=== PATIENT | female | born 1975 | race Caucasian/White ===

== ENCOUNTER → 2018-07-22 08:43 | Outpatient (CLI) | payer OTHER, SELFPAY ==
--- NOTE | 2018-07-22 08:51 | BI_ITS ---
MAMMOGRAPHY - BILATERAL SCREENING REASON FOR EXAM: Female, 43 years old. Routine annual screening examination. PERTINENT HISTORY: Grandmother with breast cancer. TECHNIQUE: Digital bilateral breast lennox (3D mammographic acquisition) in the CC and MLO projections. 2-D mediolateral oblique (MLO) and craniocaudad (CC) views of both breasts were obtained. CAD: Full Field Digital Mammography with Computer Added Detection was performed. COMPARISON: Comparison is made with prior study dated March 05, 2016. FINDINGS: Breast Composition: The breasts are heterogeneously dense, which may obscure small masses. There are no dominant masses or suspicious calcifications. No other significant abnormalities are identified. There has been no significant change since the prior study. BI/SCREENING MAMM (CAD), BILAT IMPRESSION: Stable bilateral screening mammogram. Yearly follow-up mammogram recommended. (A) ASSESSMENT CATEGORY: BIRADS Category 1: Negative. A letter regarding these results will be sent to the patient by the facility within 30 days. Approximately 10% of breast cancers are not detected by mammography. A normal mammogram should not delay biopsy of a clinically suspicious abnormality. [id number] Electronically Signed: Major Restrepo MD at 10:51 EST Tel [phone], Service support ,
== END ==
PROVIDERS: Family Provider Family Medicine; PCP Family Medicine; Referring Provider Obstetrics & Gynecology; Visit Provider Obstetrics & Gynecology
DX: Z12.31 Encounter for screening mammogram for malignant neoplasm of breast (principal)
CPT/HCPCS: 77063; 77067

== ENCOUNTER → 2018-09-09 09:34 | Outpatient (CLI) | payer OTHER, SELFPAY ==
[2018-09-05 08:55] VITALS: BMI 32.8
[2018-09-09 10:30] LABS: Cholesterol 191 mg/dL (200); Glucose 94 mg/dL (74-106); High Density Lipoprotein 81 mg/dL; Thyroid Stim Hormone (TSH) 2.38 uIU/mL (0.358-3.74); Triglycerides 52 mg/dL; Very Low Density Lipoprotein 10 mg/dL (5-40)
[2018-09-14 12:41] LABS: Vitamin D 1,25-Dihydroxy 53.3 pg/mL (19.9-79.3)
== END ==
PROVIDERS: Family Provider Family Medicine; PCP Family Medicine; Visit Provider Obstetrics & Gynecology
DX: Z13.1 Encounter for screening for diabetes mellitus (principal); Z13.21 Encounter for screening for nutritional disorder; Z13.220 Encounter for screening for lipoid disorders
CPT/HCPCS: 36415; 80061; 82652; 82947; 84443

== ENCOUNTER 2018-09-16 18:14 | Emergency (ER) | payer OTHER, SELFPAY ==
[2018-09-05 08:55] VITALS: BMI 32.8
[2018-09-16 18:15] VITALS: BP 151/83; PULSE 78; RESP 16; TEMP 35.9; O2SAT 98; BMI 31.4
--- NOTE | 2018-09-16 18:23 | RAD_ITS ---
STUDY: X-RAY - LEFT ANKLE REASON FOR EXAM: Female, 43 years old. Left ankle pain TECHNIQUE: 3 view(s) of the ankle. COMPARISON: None. FINDINGS: Normal visualized distal tibia and fibula. Normal medial and lateral malleoli. Normal tibiotalar articulation and ankle mortise. Normal visualized talus and calcaneus. The visualized subtalar, talonavicular, calcaneocuboid and tarsal articulations are normal. The soft tissue structures are unremarkable. RAD/Ankle min 3 Views IMPRESSION: Normal x-ray examination of the ankle. Electronically Signed: Jc Cronin DO at 19:03 EST Tel , Service support ,
--- NOTE | 2018-09-16 18:24 | ED.VISSUMM ---
- ER Visit Summary Date of Service: 09/16/18 Chief Complaint: Left ankle injury History of Present Illness: The patient is a 43 F who presents with an injury to the left ankle. She fell down steps about an hour ago. She has pain in the left ankle. It is worse with movement. She has been using crutches to help ambulate since then. She took no medications for this at home. She has a history of multiple fractures with a reconstruction of this left ankle many years ago Physical Examination: Vital signs reviewed. Left ankle exam reveals tenderness over the lateral malleolus. There is no swelling. She has decreased range of motion secondary to pain. She has 2+ DP pulses Test Results: Left ankle x-ray reveals no evidence of fracture Emergency Department Course and Treatment: Patient was treated with Ultram. X-rays revealed no fractures. Patient will ice, elevate and use crutches at home. She has a boot that she can use as well. She will call her orthopedist next week for follow-up appointment Treatment Plan: [] Disposition: Discharge Impression: Ankle sprain, L This note was generated with [employer] dictation software. It may contain incorrect words, spelling, and punctuation that were not noted in review of the chart prior to signing ED Disposition - Plan for ED Patient: Referrals: Bradly Burnett DO [Primary Care Provider] -
[2018-09-16] MEDS: traMADol 50 MG Tablet PO (18:48)
--- NOTE | 2018-09-16 19:16 | ED.DEP ---
ED Disposition - Plan for ED Patient: Disposition: Home or Assisted Living Instructions: ED Sprain Ankle W X Ray Referrals: Bradly Burnett DO [Primary Care Provider] -
[2018-09-16 19:36] VITALS: BP 117/67; PULSE 68; RESP 15; O2SAT 99
--- NOTE | 2018-09-16 19:36 | ED.RN ---
PT GIVEN WRITTEN AND VERBAL DISCHARGE INSTRUCTIONS. PT HAS BOOT AT HOME DR. SIMS INSTRUCTED HER TO WEAR. PT REPORTS UNDERSTANDING AND DENIES ANY FURTHER QUESTIONS. PT AMBULATES OUT OF DEPT WITH SPOUSE.
== END 2018-09-16 19:38 | disposition home or self-care (01) ==
PROVIDERS: Emergency Provider Emergency Medicine; Family Provider Family Medicine; PCP Family Medicine
DX: S93.402A Sprain of unspecified ligament of left ankle, initial encounter (principal); W10.9XXA Fall (on) (from) unspecified stairs and steps, initial encounter; Y93.9 Activity, unspecified; Y92.9 Unspecified place or not applicable; Y99.9 Unspecified external cause status; E03.9 Hypothyroidism, unspecified; Z79.899 Other long term (current) drug therapy
CPT/HCPCS: 73610; 99283

== ENCOUNTER 2019-01-26 08:30 | Outpatient (RCR) | payer OTHER, SELFPAY ==
[2018-12-19 08:01] VITALS: BMI 31.4
--- NOTE | 2018-12-19 17:41 | HP.PTEVAL_ITS ---
Patient's Visit Information RONY RIBEIRO is a 43 year old F referred to Physical Therapy by Pasquale Galarza DO with a diagnosis of INVERSION SPRAIN OF LEFT ANKLE - DOI 09-16-18. Date of Evaluation: 12/19/18 Physical Therapist: Brenda Mcadams PT, Cert MDT - Visit Plan Frequency: 2-3x /Week Duration: 4-6 Weeks Plan: LLE ROM, STRETCHING AND STRENGTHEING. MANUAL THERAPY AND MODALITIES NEEDED. 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 RIDES AND TAKES CARE OF HORSES. Disability: NO. Present symptoms: PAIN LEFT ANKLE. MAINLY IN THE BACK AND ON THE OUTSIDE. TOES GET NUMB OFF AND ON BUT THIS IS NOT NEW. Present since: SEP 2018. Pain Scale: WORST 2/10, LEAST 0/10. Currently: 08/11. Commenced as a result of: FELL DOWN THE STEPS AT HOME. Symptoms at onset: THE WHOLE ANKLE. Worse: PUSHING ON IT, DOING CERTAIN STRETCHES FOR BACK THAT PUT WEIGHT ON LEFT FOOT AND LEANING BACK. PLANTAR FLEXION WITH WEIGHT ON IT, INVERTING FOOT WITH WEIGHT ON IT. Better: ICE. SITTING. Disturbed sleep: NO. Previous history/Previous treatment: 2 LEFT ANKLE SURGERIES PRIOR TO THIS FALL. SHE DESCRIBES A RECONSTRUCTION SURGERY AND SURGERY FOR AN AVULSION FX. 1993 AND 1997. NO HARDWARE IN ANKLE. PATIENT DESCRIBES MULTIPLE BREAKS AND SPRAINS OF THIS ANKLE SINCE CHILDHOOD. PATIENT REPORTS TOE NUMBNESS, ANKLE TIGHTNESS AND ACHING OFF AND ON SINCE SURGER Y/SURGERIES. NO CORTISONE SHOTS. Gait: PAIN AND INSTABILITY WALKING ON UNEVEN GROUND. Accidents: MULTIPLE FALLS. Unexplained weight loss: NO. Imaging: LEFT ANKLE X-RAY - NORMAL. PMH: L4L5 HNP - DISECTOMY AND LAMINECTOMY ABOUT 3 YEARS AGO. RIGHT KNEE ARTHROSCOPIC SURGERY. PATIENT REPORTS SHE DOESN'T HAVE ANY PROPRIOCEPTION IN HER FEET OR LEGS AND IT HAS BEEN LIKE THIS SINCE CHILDHOOD FROM UNKNOWN CAUSE. HEART ABLASION SX ABOUT 3 YEARS AGO. H/O LEFT SHOULDER PAIN - BUT IT IS FINE NOW. PATIENT REPORTS CURRENTLY SHE HAS RIGHT UE TENDONITIS FOR NO APPARENT REASON. PLOF (Prior Level of Function): UNLIMITED - Objective THIS PATIENT AMBULATES INDEP'LY INTO PT WITHOUT ANY ASSISTIVE DEVICES OR GROSS DEVIATIONS NOTED. PATIENT HAS HYPERSENSATIVITY OF THE LEFT ANKLE AREA AND SHE RELATES THIS TO HER PAST ANKLE SURGERIES. HER ANKLE ISN'T BRUISED OR SWOLLEN. THERE IS NOT ACUTE TENDERNESS WITH LIGHT PALPATION HOWEVER SHE REPORTS DR. GALARZA PUSHED PRETTY HARD AND FOUND SOME TENDER AREAS IN FRONT OF AND BEHIND HER ANKLE BONE ON THE OUTSIDE. SHE HAS LEFT ANKLE DORSIFLEXION TO NEUTRAL, INVERSION IS ONLY 5 DEG AND EVERSION IS 28 DEG, PLANTARFLEX 55 DEG. LEFT ANKLE STRENGTH IS GROSSLY 4/5. TREATMENT: PATIENT WAS SEEN TODAY FOR LEFT ANKLE STM AND MANUAL STRETCHING. AND DESENSATIZATION FOLLOWED BY FRANK HINOJOSA 4 WAY ANKLE STRENGTHENING. HER LEFT ANKLE ROM IMPROVED POST TREATMENT ALL PLANES ESPECIALLY INVERSION. - Goals Goal 1:: DECREASE C/O LEFT ANKLE PAIN Goal Time Frame: 4-6 Weeks Goal 2:: IMPROVE LEFT ANKLE FUNCTIONAL ROM Goal Time Frame: 4-6 Weeks Goal 3:: IMRPOVE ANKLE FUNCTIONAL STRENGTH Goal Time Frame: 4-6 Weeks Goal 4:: INDEP HEP Goal Time Frame: 4-6 Weeks - Rehabilitation Potential Rehabilitation Potential: Good - Anticipated Interventions Patient/Client Instruction: Educate patient on: Condition, Plan of Care, Risk Factors, Benefits of Fitness Program For the Purpose of:: To improve self management Therapeutic Exercise to Include: Strength training, Balance training, Flexibilty training, Neuromotor development, Passive ROM, Active ROM For the Purpose of:: To decrease pain, To increase ROM, To improve muscle performance and motor function, To increase tolerance to activity/condition/position, To improve ability of physical actions for home/community/work/leisure Manual Therapy Techniques to Include: Passive ROM, Soft tissue mobilization For the Purpose of:: To decrease pain, To increase ROM, To improve nutrient delivery to tissue TENS: Yes Cryotherapy (ice pack, ice massage): Yes Thermo therapy (hot pack): Yes Ultrasound (thermal/non thermal): Yes For the Purpose of:: To decrease pain, To increase ROM, To improve nutrient delivery to tissue Thank you for the opportunity to evaluate your patient. For Medicare and Medicare HMO plans, please review the plan of care and approve it. It will need to be FAXED BACK to us at [phone] for Medicare purposes. For Medicare only, by signing this I certify the plan of care. Please let me know if there are questions or concerns regarding this plan of care. Physician Signature: Date:
--- NOTE | 2019-01-26 09:02 | HP.PTDCSUM ---
HP - PT D/C Summary It has been my pleasure to treat RONY RIBEIRO under orders from Pasquale Galarza DO, for the diagnosis of INVERSION SPRAIN OF LEFT ANKLE - DOI 09-16-18 for a total of 12 visit(s). Discharge Date: 01/26/19 Please see the following information for a summary of their discharge status. - Subjective Subjective: PATIENT REPORTS SHE HASN'T HAD ANY PAIN SINCE LAST WEDNESDAY WHEN SHE WAS STRETCHING IN THE GYM. SHE REPORTS IT DOESN'T HURT ON THE TOP ANYMORE JUST IN THE BACK. PATIENT REPORTS THE HIGHEST PAIN LEVEL SHE HAS HAD IN THE LAST WEEK WAS 2/10 - Pain LEFT ANKLE Pain Intensity (Out of 10): 0 - Overall Improvement % Improvement: 90 - Objective Objective/Function: ALL GOALS MET. PATIENT HAS GOOD LEFT ANKLE FUNCTIONAL ROM AND STRENGTH NOW WITH MILD INTERMITTENT PAIN. SHE IS INDEP WITH A HOME EX PROGRAM ALSO. THIS PATIENT AMBULATES INDEP'LY INTO PT WITHOUT ANY ASSISTIVE DEVICES OR GROSS DEVIATIONS NOTED. PATIENT STILL HAS HYPERSENSATIVITY OF THE LEFT ANKLE AREA AND SHE RELATES THIS TO HER PAST ANKLE SURGERIES. HER ANKLE ISN'T BRUISED OR SWOLLEN. SHE HAS LEFT ANKLE DORSIFLEXION TO +10 DEG, INVERSION 16 DEG AND EVERSION IS 43 DEG, PLANTARFLEX 60 DEG. LEFT ANKLE STRENGTH IS GROSSLY 5/5. - Goals Goal 1:: DECREASE C/O LEFT ANKLE PAIN Goal Progress: Goal Met Goal 2:: IMPROVE LEFT ANKLE FUNCTIONAL ROM Goal Progress: Goal Met Goal 3:: IMRPOVE ANKLE FUNCTIONAL STRENGTH Goal Progress: Goal Met Goal 4:: INDEP HEP Goal Progress: Goal Met - Plan Plan: D/C. PATIENT AGREEABLE. - D/C Information If there are questions or concerns regarding this patient's physical therapy, please feel free to call me at [phone]. Thank you for the referral of this patient. Sincerely, Brenda Mcadams, PT, Cert MDT
== END 2019-01-26 19:00 | disposition home or self-care (01) ==
LOC: PT 08:30
PROVIDERS: Family Provider Family Medicine; PCP Family Medicine; Referring Provider Orthopaedic Surgery; Visit Provider Orthopaedic Surgery
DX: S93.402D Sprain of unspecified ligament of left ankle, subsequent encounter (principal)
CPT/HCPCS: 97035; 97110; 97140; 97161; 97530

== ENCOUNTER → 2019-03-31 08:03 | Outpatient (CLI) | payer OTHER, SELFPAY ==
[2019-03-31 07:58] VITALS: BMI 31.4
--- NOTE | 2019-03-31 08:06 | RAD_ITS ---
STUDY: X-RAY - RIGHT ELBOW REASON FOR EXAM: Female, 43 years old. Atraumatic pain. TECHNIQUE: 3 view(s) of the elbow. COMPARISON: None. FINDINGS: Normal visualized humerus, radius and ulna. Normal radiocapitellar and ulnotrochlear articulations. The soft tissue structures are unremarkable. RAD/Elbow min 3 Views IMPRESSION: Normal x-ray examination of the elbow. Electronically Signed: Major Restrepo, at 10:09 EDT , Service support ,
== END ==
PROVIDERS: Family Provider Family Medicine; PCP Family Medicine; Referring Provider Orthopaedic Surgery; Visit Provider Orthopaedic Surgery
DX: M25.521 Pain in right elbow (principal)
CPT/HCPCS: 73080

== ENCOUNTER 2019-04-27 07:30 | Outpatient (RCR) | payer OTHER, SELFPAY ==
[2019-03-31 07:58] VITALS: BMI 31.4
--- NOTE | 2019-04-06 09:27 | HP.OTEVAL ---
Patient's Visit Information RONY RIBEIRO is a 43 year old F, referred to Occupational Therapy by Pasquale Galarza DO, with a diagnosis of Right lateral epi .. Date of Evaluation: 04/05/19 Occupational Therapist: MERA Parkinson/Curt, CHT - Subjective Subjective: This 43 year old female was seen for OT eval with dx of right elbow pain for about 4-5 month. pt states she does wear a counter force brace and wears it when she is doing physical labor. ices 1 x a day. celabrex daily. 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 keyboard. pt would like to decrease her pain level so she can return to her daily occupations. - ADLs Household: Vacuum, Sweep/mop Yard: Mow lawn Comments: push mow Comments: pt states she has pain with working with her horses-pts states she can not hold items to care for her horses. - Pain right elbow 1 Pain Intensity Range: 7 - ROM Elbow: right/left WNL Forearm: right/left WNL - Strength Investment Banking Analyst: Right elbow bent 40# straight 20#left bent 80#/stratight 100# Lateral Pinch: Right 14# left 20# Tripod Pinch: Right 20# left 20# - Special Tests Lat Epiconylitis - as named: positive - Quick DASH-Disab of Arm,Shoulder& Hand Quick DASH Score: 31.6650 - Tennis Elbow Tennis Elbow Score: 41 - Goals Goal:: PT will demo an increase in medical authorization specialist strength by 30# to increase independent with basic occupations of daily living to return pt to PLOF by D/C. Pt will demo an increase in lateral and tripod pinch by 4# to increase pts independent with opening baggies, containers at PLOF by D/C. Goal:: Pt will report pain no greater than 1/10 with use of affected hand with BADLs and IADLs by d/c. Goal:: Pt will demo understanding of work/lifting and carry ergonomics to decrease stress on tendons to increase pts independent with ADLs, IADLS and work tasks by d/c. Goal:: pt will demo ind. don/doff of counter fource lat. epi brace and demo understanding of using with all daily occupations. - Rehabilitation General Assessment: Pt demo with positive lat. epi symptoms as pain to right lat eip. with palpation along with a decrease in medical authorization specialist strength and pain with resisitve forearm pronation limiting ptss with BADLs and IADLS. Pt would benefit from skilled OT services 1-2x week for 4 weeks to decrease pts pain, increase pts functional strength to return pt to PLOF with ALDs and IADLs. Today pt was ed. and given handout on lat. ep ed./ extensor stretch along with use of counter force brace and ice 1-2 x day for 10 min. pt demo understanding and agree to POC. Rehabilitation Potential: Good - Anticipated Interventions Anticipated Interventions: Strengthening, Triggerpoint Release, Modalities, Orthoses, Joint Protection/Energy Conservation, Ergonomic Education - Visit Plan Frequency: 2x /Week Duration: 4 Weeks TEXT: Thank you for the opportunity to evaluate your patient. For Medicare and Medicare HMO plans, please review the plan of care and approve it. It will need to be FAXED BACK to us at [phone] for Medicare purposes. Please let me know if there are questions or concerns regarding this plan of care. Physician Signature: Date:
--- NOTE | 2019-06-21 18:50 | HP.OTDCSUM ---
HP - OT D/C Summary It has been my pleasure to treat RONY RIBEIRO under orders from Pasquale Galarza DO, for the diagnosis of Right lateral epi . for a total of 7 visit(s). Please see the following information for a summary of their discharge status. - Overall Improvement % Improvement: 30 - Objective Objective/Function: right elbow pain with right fruit shipper strength 45#. right elbow straight fruit shipper strength 20# pt has at 4/10. pt is performing eccentric ex, use of counter force brace, wrist brace. Pt also ed. and reports she has changed her ergonomics with daily tasks. Due to limited progress pt was asked to return to dr. - Goals Patient Goals: Regain Strength, Decrease Pain, Use Hand/Wrist/Arm Normally Again, Be More Independent in ADLS Goal:: PT will demo an increase in fruit shipper strength by 30# to increase independent with basic occupations of daily living to return pt to PLOF by D/C. Pt will demo an increase in lateral and tripod pinch by 4# to increase pts independent with opening baggies, containers at PLOF by D/C. Goal:: Pt will report pain no greater than 1/10 with use of affected hand with BADLs and IADLs by d/c. Goal:: Pt will demo understanding of work/lifting and carry ergonomics to decrease stress on tendons to increase pts independent with ADLs, IADLS and work tasks by d/c. Goal:: pt will demo ind. don/doff of counter fource lat. epi brace and demo understanding of using with all daily occupations. - Plan Plan: cont eccentric ex - D/C Information If there are questions or concerns regarding this patient's occupational therapy, please fell free to call me at [phone]. Thank you for the referral of this patient. Sincerely, Areli Valdez, OTR/L, CHT
== END 2019-04-27 19:00 | disposition home or self-care (01) ==
LOC: OT 07:30
PROVIDERS: Family Provider Family Medicine; PCP Family Medicine; Referring Provider Orthopaedic Surgery; Visit Provider Orthopaedic Surgery
DX: M77.11 Lateral epicondylitis, right elbow (principal)
CPT/HCPCS: 97035; 97110; 97140; 97166; 97168

== ENCOUNTER → 2019-12-13 07:51 | Outpatient (CLI) | payer OTHER, SELFPAY ==
[2019-12-06 09:45] VITALS: BMI 31.4
--- NOTE | 2019-12-13 07:54 | US_ITS ---
STUDY: ULTRASOUND OF THE FEMALE PELVIS - COMPLETE REASON FOR EXAM: Female, 44 years old. PELVIC PAIN , S/P HYSTERECTOMY LMP: The patient is post hysterectomy. TECHNIQUE: Transabdominal TECHNICAL QUALITY: Adequate. COMPARISON: None. FINDINGS: The patient is status post hysterectomy. The right ovary is visualized. The right ovary measures 2.7 cm x 2.5 cm x 0.9 cm. There is no right ovarian cyst or ovarian mass. There is no visualized right adnexal mass or complex lesion. There is normal arterial and normal venous vascularity. The left ovary is visualized. The left ovary measures 2.3 cm x 2 cm x 1.2 cm. There is no left ovarian cyst or ovarian mass. There is no visualized left adnexal mass or complex lesion. There is normal arterial and normal venous vascularity. There is no fluid in the cul-de-sac. The pre void volume of the bladder was 391 ml. Polycystic ovary disease: No. US/Pelvic (Non ) IMPRESSION: Status post hysterectomy. The ovaries are unremarkable. Electronically Signed: Major Restrepo, at 10:18 EDT , Service support ,
== END ==
PROVIDERS: PCP Preventive Medicine Occupational Medicine; Referring Provider Obstetrics & Gynecology; Visit Provider Obstetrics & Gynecology
DX: N80.9 Endometriosis, unspecified (principal); R10.2 Pelvic and perineal pain
CPT/HCPCS: 76856

== ENCOUNTER → 2020-08-14 09:48 | Outpatient (CLI) | payer OTHER, SELFPAY ==
[2020-08-14 12:27] LABS: Absolute Lymphocyte Count 1.85 X10^3/uL (0.83-4.51); Absolute Neutrophil Count 4.1 X10^3/uL (2.0-7.7); Basophil# 0.03 X10^3/uL; Basophil% 0.5 % (0-1); Eosinophil# 0.16 X10^3/uL; Eosinophils% 2.4 % (0-5); Hematocrit 40.4 % (37-47); Hemoglobin 13.1 g/dL (12.0-15.0); Lymphocyte # 1.85 X10^3/ul (4.0); Lymphocyte % 27.9 % (19-41); Mean Corp Hgb Conc 32.4 g/dL (32-36); Mean Corpuscular Hgb 30.7 pg (27.0-32.0); Mean Corpuscular Volume 94.6 fL (81-99); Mean Platelet Vol. 11.3 fl (6.2-12.0); Monocyte# 0.49 X10^3/uL; Monocyte% 7.4 % (0-10); NRBC Flagged by Analyzer 0 % (0-5); Neutrophil # 4.09 X10^3/uL (2.7-7.7); Neutrophil % 61.6 % (47-70); Platelet Count 258 K/mm3 (150-450); RBC Distribution Width CV 13.8 % (11.6-14.6); RBC Distribution Width SD 47.9 fl (35.1-43.9); Red Blood Count 4.27 M/mm3 (4.2-5.4); White Blood Count 6.6 K/mm3 (4.4-11.0)
[2020-08-14 12:41] LABS: Vitamin D,25 Hydroxy 19.5 ng/mL
[2020-08-14 12:52] LABS: ALB/GLOB Ratio 0.9 RATIO (0.9-2.4); AST(SGOT) 18 U/L (15-37); Alanine Aminotransfer ALT/SGPT 22 U/L (13-56); Albumin, Serum 3.7 g/dL (3.2-5.0); Alkaline Phosphatase 126 U/L (45-117); Anion Gap 7 (5-15); BUN 16 mg/dL (7-18); BUN/Creat Ratio 19.5 RATIO (10-20); Calcium,Total 9.1 mg/dL (8.5-10.1); Chloride 105 mmol/L (98-107); Creatinine, Serum 0.82 mg/dL (0.55-1.02); EST Glomerular Filtration Rate 80 mL/min (>60); Est Glom Filt Rate - Afr Amer 97 mL/min (>60); Glucose 96 mg/dL (74-106); Potassium 4.4 mmol/L (3.5-5.1); Protein, Total 7.7 g/dL (6.4-8.2); Sodium Level 139 mmol/L (136-145)
== END ==
PROVIDERS: PCP Preventive Medicine Occupational Medicine; Referring Provider Preventive Medicine Occupational Medicine; Visit Provider Family Medicine
DX: Z01.818 Encounter for other preprocedural examination (principal)
CPT/HCPCS: 36415; 80053; 82306; 85025

== ENCOUNTER 2020-08-26 09:37 | Day surgery (SDC) | payer OTHER, SELFPAY ==
[2019-12-06 09:45] VITALS: BMI 31.4
[2020-08-26 10:23] VITALS: BP 141/92; PULSE 63; RESP 16; TEMP 36.9; O2SAT 100; BMI 37.9
[2020-08-26] MEDS: Lactated Ringers 1,000 ML 100 ML IV (10:39)
--- NOTE | 2020-08-26 10:45 | RAD_ITS ---
STUDY: X-RAY - LEFT FOOT CLINICAL: ORIF left navicular fracture. TECHNIQUE: 4 intraoperative images of the foot. COMPARISON: Radiographs 09/16/2018. FINDINGS: There is an orthopedic screw in the navicular. 2 minutes and 21 seconds of fluoroscopy time was used. Electronically Signed: Ervin Gottlieb MD at 14:11 EST Tel , Service support , RAD/Foot min 3 Views
[2020-08-26] MEDS: Bupivacaine Mpf 0.5% 30 ML VIAL (11:02)
--- NOTE | 2020-08-26 11:11 | PCM.DC.POD ---
Discharge Diet: Light diet - advance as tolerated Discharge Activity: May not drive while taking narcotic pain medications., Use Walker, Use Crutches Weight Bearing Status: No weight bearing - Strict nonweightbearing left foot. Keep extremity elevated above heart level: Left Leg - Keep left foot elevated with pillows for at least 50 minutes of every hour. Call your doctor if your incision/area has: Continuous Slow Oozing, Sudden Increased Bleeding, Increased Redness, Foul Smelling Discharge Call your doctor if you observe: Fever of 101 or Higher, Shortness of breath, Chest pain, Increased palpitations (irregular heartbeat), Calf discomfort, Uncontrolled pain Cleanse incision/area with: Do not get Incision Wet, Keep Dressing Clean & Dry Additional Instructions: Take 160mg Aspirin by mouth once a day to help prevent a blood clot. Allergies/Adverse Reactions: Allergies adhesive tape Allergy (Verified 08/26/20 10:22) Hives amoxicillin trihydrate [From Augmentin] Allergy (Verified 08/26/20 10:22) Other diclofenac Allergy (Verified 08/26/20 10:22) Swelling hydrocodone Allergy (Verified 08/26/20 10:22) Shortness of breath HALLUCINATIONS/MENTAL STAUS CHANGES oxycodone Allergy (Verified 08/26/20 10:22) Shortness of breath HALLUCINATION/MENTAL STATUS CHANGE phenobarbital Allergy (Verified 08/26/20 10:22) Other potassium clavulanate [From Augmentin] Allergy (Verified 08/26/20 10:22) Other acetaminophen [From Vicodin] Adverse Reaction (Verified 08/26/20 10:22) Other hydrocodone bitartrate [From Vicodin] Adverse Reaction (Verified 08/26/20 10:22) Other oxycodone HCl [From Percocet] Adverse Reaction (Verified 08/26/20 10:22) Other Medications to take at Discharge oxybutynin chloride 5 mg tablet,extended release 24 hr 5 mg PO QDAY #90 tab 09/05/18 sertraline 100 mg tablet 100 mg PO DAILY 12/06/19 Levothyroxine [Synthroid] 50 mcg PO QODAY 08/19/20 Meclizine HCl [Antivert] 12.5 mg PO DAILY PRN PRN 08/19/20 Acetaminophen 500 mg PO Q4H PRN PRN #40 tab 08/26/20 Ergocalciferol [Vitamin D] 1 capsule PO QWEEK 08/26/20 Levothyroxine [Synthroid] 25 mcg PO QODAY 08/26/20 Tramadol HCl [Ultram] 50 mg PO Q6H PRN PRN 3 Days #20 tab 08/26/20 The following prescriptions were given: Acetaminophen 500 mg PO Q4H PRN PRN #40 tab PRN Reason: Pain Score 1-10 Transmission Status: Received by [facility] Tramadol HCl [Ultram] 50 mg PO Q6H PRN PRN 3 Days #20 tab PRN Reason: Pain Score 4-10 Transmission Status: Received by [facility] Primary Care Physician: Salvador Rosa DO [Primary Care Provider] - Test Results: Test results from this visit will be discussed in further detail at your follow-up appointment, if applicable. Please Follow Up With: Obey Henry DPM When: 1 week, sooner if needed
[2020-08-26] MEDS: Heparin Injection (Vial) 5,000 UNIT/ML VIAL 5000 UNIT (11:28)
[2020-08-26] MEDS: 0.9% Saline Lock 10 ML Syringe IV ×2 (11:42→11:57)
[2020-08-26 12:44] VITALS: BP 141/92; BP 174/82; PULSE 100; RESP 18; TEMP 36.5; O2SAT 100
--- NOTE | 2020-08-26 12:46 | PCM.OPRPT ---
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 Chelsi Bacon Type of Anesthesia:: General, Local Specimen's removed: None Estimated Blood Loss (mL): 5mL Description of Procedure: Indications: This is a 45 year old female who has chronic pain to the left foot, since March 2020. Her symptoms persisted and were not getting better despite resting and other conservative modalities. An MRI was ordered, which showed a navicular fracture along with bone marrow edema to the navicular. A CT scan also confirmed the navicular stress fracture to the navicular. She is active, especially with her horses. All of the options were discussed with her, and we reviewed the conservative versus surgical options given the nature of this injury as well as the chronicity and her activity level. She elected to proceed forward with open reduction and internal fixation of the navicular fracture, along with calcaneal bone marrow aspiration and application of concentrated bone marrow aspirate to the navicular fracture site. The procedure was reviewed with her in great detail as well as all possible benefits versus the risks and all alternative options. She expressed understanding and agreement and agreed forward to proceed forward with surgical intervention. Patient reviewed the consent forms and freely signed them. Operative Procedure: The patient was brought back into the operating room and was placed on the operating room table in the supine position. The patient did receive prophylactic antibiotics. She received 900 mg of Clindamycin for IV antibiotic prophylaxis. A well-padded pneumatic tourniquet was applied around her left ankle. A time-out was performed and the patient was properly identified and surgical plan was confirmed. She received general anesthesia per the anesthesiologist. A well padded pneumatic tourniquet was applied around the left ankle, however was not inflated. The left foot was scrubbed, prepped and draped in the usual aseptic fashion. Also of note the patient received a left ankle block in the pre operative holding area by the anesthesia team. A Jamshidi needle was carefully inserted into the lateral wall of the calcaneus at the safe zone. 40mL of bone marrow aspirate was obtained and it was spun down using the [employer] system to 1mL of concentrated bone marrow aspirate. A guide wire was placed from lateral to medial across the body of the navicular, across the fracture site. Proper placement was confirmed using intraoperative flouroscopy. A small ~0.5mm skin incision was made to the dorsal foot at level of the dorsal lateral navicular. Careful dissection was completed down to the navicular bone. The navicular was drilled over the guide wire, and using rigid open reduction and internal fixation technique one 3.5 mm Arthrex cannulated screw was placed across the fracture site until the screw was tightly placed down to the bone and there was good compression of the fracture site. This was done under intraoperative fluoroscopy for guidance. At this time, the fracture site was stable. The site was flushed out with copious amounts of normal saline solution. The concentrated bone marrow aspirate was injected to the navicular fracture site. The navicular bone was again checked under intraoperative fluoroscopy and it was noted alignment was anatomic, and screw was in good position. The skin was carefully reapproximated using 3-0 Nylon. A dressing was applied, which consisted of Betadine-soaked adaptic, 4 x 4 gauze, Kerlix, Milad bandages and a well-padded below the knee posterior splint. The pneumatic tourniquet was not needed, and thus was not inflated during this procedure. There was minimal blood loss, all bleeding was stopped proper to closure. There was noted to be normal warmth and perfusion to the left foot and to all 5 toes in left foot with normal temperature gradient present throughout and at the end of the procedure. Postoperative x-rays were ordered, which confirmed open reduction and internal fixation of the navicular with anatomical alignment with proper screw fixation across the fracture site. No complications were present. The patient tolerated the above procedure well and anesthesia well with no complications. She was transported from the operative room to recovery room with vital signs stable and in good condition. Postoperative orders were placed. Postoperative instructions were reviewed with her and her who was with her today, instructions were given to keep the left foot elevated for at least 50 minutes of every hour and to remain nonweightbearing to the left foot at all times. Also keep the dressing and splint clean, dry and intact. A prescription for Tramadol 50mg PO q 6 hours prn pain was provided, as well as Acetaminophen 500mg PO q 4 hours prn pain. She relates Tramadol and Acetaminophen are the only pain medications she can take due to her allergy history. Reviewed possible side effects and possible drug interactions with her other medications. Also Aspirin 160mg PO once daily was recommended to help prevent a blood clot due to immobilization, decreased activities and now post op surgery. She relates she has taken her current medications together with Tramadol and Acetaminophen in the past with no problems or adverse reactions. Advised patient to monitor for any adverse reactions, problems, questions or concerns and follow up immediately if present. Otherwise she is to follow up in office in 1 week or sooner if needed. Grafts/Implants Used: 1 x 3.5mm cannulated arthrex screw - Complications None
--- NOTE | 2020-08-26 12:55 | RAD_ITS ---
STUDY: X-RAY - LEFT FOOT CLINICAL: Postop left navicular fracture. TECHNIQUE: 3 view(s) of the foot. COMPARISON: Intraoperative images obtained the same day. FINDINGS: There is an orthopedic screw transfixing the navicular fracture in anatomical alignment and position. Normal visualized subtalar, talonavicular, calcaneocuboid, tarsal and tarsometatarsal articulations. Normal metatarsi. Normal metatarsophalangeal joint of the great toe. Normal tibial and fibular sesamoid bones. There is a bipartite tibial sesamoid. Normal interphalangeal joint of the great toe. Normal phalanges of the great toe. Normal second through fifth metatarsophalangeal joints. Normal interphalangeal joints and phalanges of the lesser toes. There is an overlying cast. RAD/Foot min 3 Views IMPRESSION: ORIF of navicular fracture. Electronically Signed: Ervin Gottlieb MD at 14:25 EST Tel , Service support ,
[2020-08-26 13:00] VITALS: BP 141/92; BP 157/95; PULSE 89; RESP 16; O2SAT 100
[2020-08-26 13:15] VITALS: BP 141/92; BP 160/88; PULSE 83; RESP 16; O2SAT 97
[2020-08-26 13:21] VITALS: BP 141/92; BP 167/87; PULSE 86; RESP 16; TEMP 36.2; O2SAT 96
[2020-08-26 14:50] VITALS: BP 140/80; BP 141/92; PULSE 65; RESP 12; TEMP 36.8; O2SAT 99
== END 2020-08-26 15:02 | disposition home or self-care (01) ==
LOC: SDC 09:37 → AC 09:38
PROVIDERS: Anesthesiology; PCP Preventive Medicine Occupational Medicine; Referring Provider Podiatrist; Visit Provider Podiatrist
PROC: (CPT 20999; principal; 2020-08-26 11:10)
DX: M84.375A Stress fracture, left foot, initial encounter for fracture (principal); X58.XXXA Exposure to other specified factors, initial encounter; Y93.9 Activity, unspecified; Y92.9 Unspecified place or not applicable; Y99.9 Unspecified external cause status; M79.672 Pain in left foot; G89.29 Other chronic pain; Z20.822 Contact with and (suspected) exposure to COVID-19; E07.9 Disorder of thyroid, unspecified; J45.909 Unspecified asthma, uncomplicated; K21.9 Gastro-esophageal reflux disease without esophagitis; Z78.0 Asymptomatic menopausal state; Z79.899 Other long term (current) drug therapy
CPT/HCPCS: 01480; 20999; 28465; 64450; 73630; 76000; 84443; 87426; C1713; C9803; J7120; A4216; J2405

== ENCOUNTER 2021-08-07 08:17 | Outpatient (CLI) | payer OTHER, SELFPAY ==
--- NOTE | 2021-08-07 08:15 | BI_ITS ---
MAMMOGRAPHY - BILATERAL SCREENING REASON FOR EXAM: Female, 46 years old. Routine annual screening examination. PERTINENT HISTORY: Mother with breast cancer. Grandmother with breast cancer. TECHNIQUE: Digital bilateral breast roberto (3D mammographic acquisition) in the CC and MLO projections. 2-D mediolateral oblique (MLO) and craniocaudad (CC) views of both breasts were obtained. CAD: Full Field Digital Mammography with Computer Added Detection was performed. COMPARISON: Comparison is made with prior study dated 07/22/2018 and 03/05/2016. FINDINGS: Breast Composition: The breasts are heterogeneously dense, which may obscure small masses. 7.4 mm x 7 mm well-defined nodule in the deep slightly upper lateral portion of the left breast. Correlation with ultrasound is recommended. No other significant abnormalities are identified. BI/SCRN MAMM (CAD)W/ROBERTO BILAT IMPRESSION: 7.4 mm x 7 mm well-defined nodule in the deep slightly upper lateral portion of the left breast. Correlation with ultrasound is recommended. ASSESSMENT CATEGORY: BIRADS Category 0: Incomplete. Need additional imaging evaluation. A letter regarding these results will be sent to the patient by the facility within 30 days. Approximately 10% of breast cancers are not detected by mammography. A normal mammogram should not delay biopsy of a clinically suspicious abnormality. [id number] Electronically Signed: Major Restrepo MD at 9:18 EST , Service support ,
== END 2021-08-07 23:59 | disposition short-term general hospital (02) ==
LOC: OPBI 08:18
PROVIDERS: PCP Preventive Medicine Occupational Medicine; Referring Provider Preventive Medicine Occupational Medicine; Visit Provider Preventive Medicine Occupational Medicine
DX: Z12.31 Encounter for screening mammogram for malignant neoplasm of breast (principal)
CPT/HCPCS: 77063; 77067

== ENCOUNTER 2021-08-13 08:57 | Outpatient (CLI) | payer OTHER, SELFPAY ==
--- NOTE | 2021-08-13 09:03 | US_ITS ---
STUDY: ULTRASOUND BREAST - LEFT REASON FOR EXAM: Female, 46 years old. Abnormal screening mammogram. TECHNIQUE: Axial and longitudinal images of the LEFT breast were performed with a high resolution ultrasound transducer. # OF IMAGES: 46 COMPARISON: Comparison is made with prior mammogram dated 08/07/2021. FINDINGS: LEFT Breast: The upper outer quadrant of the left breast was examined. Tiny cystic areas are seen. The largest measures 5 mm x 8 mm x 3 mm. This is at the 1 o''clock position of the breast at 3 cm from nipple. US/Breast Limited Unilateral IMPRESSION: Multiple small cysts are seen in the upper outer quadrant of the left breast. ASSESSMENT CATEGORY: BIRADS Category 2: Benign. A letter regarding these results will be sent to the patient by the facility within 30 days. Electronically Signed: Major Restrepo MD at 13:58 EST , Service support ,
== END 2021-08-13 23:59 | disposition short-term general hospital (02) ==
LOC: OPUS 08:57
PROVIDERS: PCP Preventive Medicine Occupational Medicine; Visit Provider Preventive Medicine Occupational Medicine
DX: N63.20 Unspecified lump in the left breast, unspecified quadrant (principal)
CPT/HCPCS: 76642

== ENCOUNTER → 2022-08-28 | Outpatient (CLI) | payer OTHER, SELFPAY ==
[2022-08-28 14:00] LABS: Estradiol 16.7 pg/mL; Follicle Stimulating Hormone 87.4 mIU/mL
== END | disposition home or self-care (01) ==
LOC: LAB 12:52
PROVIDERS: PCP Preventive Medicine Occupational Medicine; Referring Provider Nurse Practitioner Women's Health; Visit Provider Nurse Practitioner Women's Health
DX: N80.9 Endometriosis, unspecified (principal)
CPT/HCPCS: 36415; 82670; 83001

== ENCOUNTER → 2022-09-20 | Outpatient (CLI) | payer OTHER, SELFPAY ==
--- NOTE | 2022-09-20 08:41 | MRI_ITS ---
STUDY: MR Knee W/O Contrast 09/20/2022 2:46 PM RIGHT REASON FOR EXAM: Female, 47 years old. pain ANTERIOR KNEE PAIN ABOVE PATELLA . BRUISING BELOW PATELLA. PAINFUL TO WALK. INJURED 09/09/21 FALLING DURING DOG AGILITY CLASS. XR RT KNEE 09/16/22 TECHNIQUE: Standardized fat and water weighted pulse sequences were obtained in all 3 orthogonal planes. COMPARISON: 09.16.22 xr knee. FINDINGS: Normal medial meniscus. Normal hyaline cartilage of the medial femorotibial compartment. Normal medial femoral condyle and tibial plateau. Normal medial collateral ligamentous complex (MCL). Normal distal semimembranosus, gracilis and semitendinosus tendons. Normal lateral meniscus. Normal hyaline cartilage of the lateral femorotibial compartment. Normal lateral femoral condyle and tibial plateau. Normal proximal tibiofibular articulation. Normal lateral collateral (fibular) ligament. Normal popliteus tendon. Normal biceps femoris tendon. Normal anterior cruciate ligament (ACL). Normal posterior cruciate ligament (PCL). Normal congruent patellofemoral articulation. Normal hyaline cartilage of the patellofemoral compartment. Normal medial and lateral patellar retinaculum. Normal quadriceps tendon. Normal patellar tendon. Normal Hoffa''s fat pad. There is no joint effusion. There is soft tissues edema around the patella. No patellar fracture. The otherwise visualized osseous structures are unremarkable. MRI/Lower Ext Joint Only (Routine) IMPRESSION: There is soft tissues edema around the patella. No patellar fracture. Electronically Signed: Kang Ron MD at 14:50 EST Reading Location ID and State: [facility] / [place] , Service support ,
== END | disposition home or self-care (01) ==
PROVIDERS: PCP Preventive Medicine Occupational Medicine; Referring Provider Orthopaedic Surgery; Visit Provider Orthopaedic Surgery
DX: S82.131A Displaced fracture of medial condyle of right tibia, initial encounter for closed fracture (principal); W19.XXXA Unspecified fall, initial encounter
CPT/HCPCS: 73721

== ENCOUNTER 2022-10-22 07:30 | Outpatient (RCR) | payer OTHER, SELFPAY ==
--- NOTE | 2022-08-05 14:57 | HP.OTEVAL ---
Patient's Visit Information RONY RIBEIRO is a 47 year old F, referred to Occupational Therapy by Dr. Paddy Renae MD, with a diagnosis of left UE ulnar nerve lesion, ulna closed fx, lateral epicondylitis. Date of Evaluation: 08/05/22 Occupational Therapist: Areli Valdez, MERA/Curt, CHT - Subjective This 47 year old female was seen for OT eval with dx of left arm dog bite-with lower end left ulna closed fx and this occurred in September- went to ER for stiches followed with infection. pt states she continued to have difficulty of infection and ulnar nerve lesion symptoms- Pt did go through Physical therapy and made gains with her ROM. pt did have 2nd cortisone injection for lateral epicondylitis. pt goals are to return to her home mtg chores as working and riding her horses. 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 pt states her last sx was in December 10 and to debride wrist. pt would like to improve use of left UE for daily tasks. - ADLs Kitchen: Open jars, Open bottle caps Comments: pt states her coordination is something she is struggling with -. as well as holding items - Pain left arm 1 Pain Intensity Range: 4 - ROM Forearm: right supination/pronation is WNL Wrist: right 75//75 left 55/65 Opposition: Kapandji opposition scale right 10 left 10 - Strength Photoengraving Apprentice: right 88# left 40# Lateral Pinch: right 8# left 6# Tripod Pinch: right 14# left 10# Tip-to-Tip Pinch: right 10# left 2# Strength Comments: pt demo with limited left electronic news gathering editor and pinch strength - Sensation Thumb: right 2.83 left 2.83 Index: right 2.83 left 2.83 Middle: right 2.83 left 2.83 Ring: right 2.83 left 2.83 Little: right 2.83 left 2.83 - Nine Hole Peg Right: 17.19 seconds Left: 24.65 seconds Comments: left diminished coordination - Quick DASH-Disab of Arm,Shoulder& Hand Quick DASH Score: 61.6650 - Goals Goal:: pt will demo a increase in left electronic news gathering editor strength by 10# or greater to increase pts ind, with ADLs and IADLs by d.c Goal:: pt will demo a increase in left wrist ROM equal to right to increase pts ind. with ADLs by d.c Goal:: pt will demo a reduction on 9 hole peg test by 10 sec., indicating increase in FMS to increase pts ind. with ADls and IADLS by d.c Goal:: pt will demo understanding of using lateral epi precautions with daily task by dKellyc - Rehabilitation General Assessment: pt demo with a decrease strength of left UE and increase symptoms of left lateral epicondylitis. pt would benefit from skilled OT services 2x week for 6 weeks to gain strength to perform ADLs and IADLs at IND. level. Today therapist ed, pt on nerve glides and bilateral shoulder isometrics - Lateral epi protocol will be initiated followed with strengthening. pt was advised to continue with her swimming. pt demo understanding and agree to POC. Rehabilitation Potential: Good - Anticipated Interventions A/AAROM/PROM, Strengthening, Triggerpoint Release, Sensory Retraining, Modalities, Joint Protection/Energy Conservation, Ergonomic Education, Fine Motor Coord/Baljit, Education re assistive Equipment, Education re Diagnosis, Home Program - Visit Plan Frequency: 2x /Week Duration: 6 Weeks TEXT: Thank you for the opportunity to evaluate your patient. For Medicare and Medicare HMO plans, please review the plan of care and approve it. It will need to be FAXED BACK to us at [phone] for Medicare purposes. Please let me know if there are questions or concerns regarding this plan of care. Physician Signature: Date:
--- NOTE | 2022-08-24 09:33 | OTREVAL_ITS ---
Dr. Paddy Renae MD, It has been my pleasure to treat RONY RIBEIRO over the last 6 visits for left UE ulnar nerve lesion, ulna closed fx, lateral epicondylitis. Please see the progress note below for an update on the occupational therapy plan of care! Subjective: Pt stated that she is going to see the Dr tomorrow. Also stated that she tried to peel potatoes- and it was very difficult to hold w/ hand. Pt stated her hand almost just does not work when it gets cold. Can do most house hold hold tasks, did drop plate this week, can't heavy pans or peal potatoes. Has a lot of barn chores she is still unable to do (getting on horse, throwing hay, push wheel [place], dumb wheel [place], endurance to clean all stall, hold lung line in L hand). Holding dog treats and manipulating is difficult. Objective/Function: Eval- Spice Grinder: right 88# left 40#. 08/17/22- Spice Grinder: right 93# left 50#. 08/24/22- Spice Grinder: right 105# left 50# (had to stop d/t pain in L hand when gripping). Eval-Lateral Pinch: right 8# left 17#. 08/17/22- Lateral Pinch: right 8# left 16#. 08/24/22- Lateral Pinch: right 19# left 17#. Eval- Tripod Pinch: right 14# left 10#. 08/17/22- Tripod Pinch: right 17# left 10#. 08/24/22- Tripod Pinch: right 19# left 11#. Fmup-Ecl-zc-Tip Pinch: right 10# left 2#. 08/17/22- Tip-to-Tip Pinch: right 10# left 7#. 08/24/22- Tip-to-Tip Pinch: right 15# left 9#. AROM- wrist- 50/65. AROM -Ulnar deviation- 20. AROM- Radial deviation- 20. PROM- wrist- 60/75. 9HPT- R- 17. 46. 9 HPT- L- 25.87 Plan Frequency: 2x /Week Duration: 6 Weeks Visits in this POC: 6 weeks (2x week) Plan: -Continue POC. -Has would rec.d cont with PRE Goals - Goals Patient Goals: Regain Strength, Decrease Pain, Use Hand/Wrist/Arm Normally Again Goal:: pt will demo a increase in left business practices supervisor strength by 10# or greater to increase pts ind, with ADLs and IADLs by d.c Goal:: pt will demo a increase in left wrist ROM equal to right to increase pts ind. with ADLs by d.c Goal:: pt will demo a reduction on 9 hole peg test by 10 sec., indicating increase in FMS to increase pts ind. with ADls and IADLS by d.c Goal:: pt will demo understanding of using lateral epi precautions with daily task by dKellyc Anticipated Interventions Anticipated Interventions: A/AAROM/PROM, Strengthening, Triggerpoint Release, Sensory Retraining, Modalities, Joint Protection/Energy Conservation, Ergonomic Education, Fine Motor Coord/Baljit, Education re assistive Equipment, Education re Diagnosis, Home Program Please do not hesitate to contact me at [phone] by phone or if you have questions or concerns regarding this new plan of care! Sincerely, Areli Valdez, OTR/L, CHT
--- NOTE | 2022-10-22 07:54 | HP.OTDCSUM_ITS ---
It has been my pleasure to treat RONY RIBEIRO under orders from Dr. Paddy Renae MD, for the diagnosis of left UE ulnar nerve lesion, ulna closed fx, lateral epicondylitis for a total of 17 visit(s). Please see the following information for a summary of their discharge status. % Improvement: 80 Objective/Function: left wrist ROM 65/65 initial 55/65. left ram car operator strength 75# increase from 40#. left lateral pinch 14# increase from 6#. left tripod pinch 12# increase from 10#. left tip pinch 10# increase from 2#. pt demo a increase in ROM and functional strength to perform ADLs and IADLS. 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 Therapist advised to work with typing- pt states she has been able to type out emails without difficulty. pt states she feels the ring fingers doesn't want to do what she tells it to do. Patient Goals: Regain Strength, Decrease Pain, Use Hand/Wrist/Arm Normally Again Goal:: pt will demo a increase in left ram car operator strength by 10# or greater to increase pts ind, with ADLs and IADLs by d.c Goal:: pt will demo a increase in left wrist ROM equal to right to increase pts ind. with ADLs by d.c Goal:: pt will demo a reduction on 9 hole peg test by 10 sec., indicating increase in FMS to increase pts ind. with ADls and IADLS by d.c Goal:: pt will demo understanding of using lateral epi precautions with daily task by d.c Plan: Pt to initiate exercise program at the [facility]. If there are questions or concerns regarding this patient's occupational therapy, please fell free to call me at [phone]. Thank you for the referral of this patient. Sincerely, Areli Valdez, TERESAR/L, CHT
== END 2022-10-22 08:13 | disposition home or self-care (01) ==
LOC: OT 07:30
PROVIDERS: PCP Preventive Medicine Occupational Medicine; Referring Provider Orthopaedic Surgery Hand Surgery; Visit Provider Orthopaedic Surgery Hand Surgery
DX: S52.602D Unspecified fracture of lower end of left ulna, subsequent encounter for closed fracture with routine healing (principal); M77.12 Lateral epicondylitis, left elbow; G56.32 Lesion of radial nerve, left upper limb; G56.22 Lesion of ulnar nerve, left upper limb; M25.532 Pain in left wrist
CPT/HCPCS: 97110; 97140; 97166; 97530